=== PATIENT | female | born 1960 | race Hispanic/Latino ===

== ENCOUNTER 2017-03-11 18:51 | Emergency (ER) | payer BC ==
[~2017-03-11] VITALS: Ht 160 cm; Wt 81.7 kg
[~2017-03-11 18:51] MED LIST: ASPIRIN EC81 MG PO; FERROUS SULFAT325 MG PO; LEVOTHYROXINE100 MCG PO; MECLIZINE HCL25 MG PO
[2017-03-11] MEDS ORDERED: PROTONIX40 MG PO (20:41)
--- NOTE | 2017-03-14 17:04 | EKG ---
[facility] [place] [facility] [address] [facility] [place] [address] Signed Sinus rhythm with premature atrial complexes Nonspecific ST abnormality Abnormal ECG No previous ECGs available Confirmed by TIFFANY KAISER MD ([id number]) on 03/14/2017 5:04:23 PM Electronically Signed By: TIFFANY KAISER MD 03/14/17 1704 PATIENT NAME: ANURAG AVERY Electrocardiogram DATE OF : 56 PHYSICIAN: TIFFANY KAISER MD REPORT #: [id number] REPORT IS CONFIDENTIAL AND NOT TO BE RELEASED WITHOUT AUTHORIZATION
== END 2017-03-11 20:53 | disposition home or self-care (01) ==
LOC: ED 18:51
DX: R07.89 Other chest pain (principal); E03.9 Hypothyroidism, unspecified; Z79.899 Other long term (current) drug therapy; Z79.82 Long term (current) use of aspirin
CPT/HCPCS: 71046; 80053; 84484; 85025; 85379; 85610; 85730; 93005; 93010; 99284

== ENCOUNTER 2018-12-14 06:25 | Day surgery (SDC) | payer BC ==
[~2018-12-14] VITALS: Ht 160 cm; Wt 78.9 kg
[~2018-12-14 06:25] MED LIST changes: +LISINOPRIL-HCT1 EAC2 PO; +PROTONIX40 MG PO
--- NOTE | 2018-12-14 07:51 | NUR ---
0700-ICELANDIC INTERPRETOR WAS USED FOR TRANSLATION ON PHONE. SPEAKS SYRIAC AND PATIENT CAN UNDERSTAND SOME.
--- NOTE | 2018-12-14 08:03 | NUR ---
12/14/18 0803 Janette Ramires 0758-PATIENT ARRIVED TO PACU ON 3L NC PLACED ON 2L. PATIENT REACTIVE TO VOICE OPENS EYES. ABDOMEN SOFT.PATIENT UNDERSTANDS LITTLE ROMANIAN. PATIENT LAYING LEFT LATERAL.
--- NOTE | 2018-12-14 11:05 | OR ---
[facility] [address] [place], [place] [address] Signed DATE OF OPERATION: 12/14/2018 SURGEON: David Post MD PREOPERATIVE DIAGNOSES: 1. Hyperplastic polyps in 2008. 2. Iron-deficiency anemia. POSTOPERATIVE DIAGNOSIS: Moderate internal hemorrhoids. PROCEDURE: Colonoscopy without biopsy. ESTIMATED BLOOD LOSS: None. INDICATIONS: Anurag is a 58-year-old lady who came to us in 2008. She had a tiny hyperplastic polyp removed at 55 cm. She has no family history of colon cancer or polyps. She really has no lower GI complaints. She is on iron for iron deficiency anemia. She returns now for her 10-year followup. She always comes with her who helps interpret. She does understand [place] moderately well, but only speaks a small amount of [place]. In the office, I gave him pamphlets written in French. We went through them in detail. We also went through our written instructions, also written in French. They understand the nature of the test along with the risks including, but not limited to gas, bloating, crampy abdominal pain, bleeding, perforation requiring surgery, and missed diagnosis. They also understand the need for IV sedation. She understands her will have to take her home afterwards. After 24 hours, she can resume her activities. They expressed understanding and wished to proceed. PROCEDURE NOTE: Anurag was taken into our endoscopy suite and placed in the left lateral decubitus position. She was given 5 mg of Versed and 125 mcg of fentanyl to cover the case. A digital rectal exam was performed and this was unremarkable. The adult colonoscope was introduced and advanced around into the cecum under direct visualization of the camera. She required some extra sedation and we rotated her into the supine position with abdominal compression in order to advance the scope into the cecum itself. Overall, her prep was good. She had a couple of areas of liquid stool with seeds that I could not Electronically Signed By: DAVID POST MD 12/14/18 1105 PATIENT NAME: ANURAG AVERY OPERATIVE REPORT DATE OF : 56 REPORT #: [id number] PHYSICIAN: DAVID POST MD PCP: DEJA LUIS PA-C REPORT IS CONFIDENTIAL AND NOT TO BE RELEASED WITHOUT AUTHORIZATION [facility] [address] [place] [id number] Signed quite suction out completely. The scope was slowly withdrawn. We took pictures throughout for photodocumentation. We saw no pathology throughout the entire colon or rectum. Specifically, no polyps and no diverticulosis. Upon retroflexion of the scope, she does have moderate internal hemorrhoid columns with a couple of small internal anal skin tags. After this, the gas was suctioned out and the colonoscope removed. Anurag tolerated the procedure quite well. RECOMMENDATIONS: I will see Anurag back in my office in 10 years for repeat colonoscopy. MD SYLVESTER Culver/LEIDAL /[id number] cc: MD Deja Culver PA Copies: DAVID POST MD ~ Electronically Signed By: DAVID POST MD 12/14/18 1105 PATIENT NAME: ANURAG AVERY OPERATIVE REPORT DATE OF : 56 REPORT #: [id number] PHYSICIAN: DAVID POST MD PCP: DEJA LUIS PA-C REPORT IS CONFIDENTIAL AND NOT TO BE RELEASED WITHOUT AUTHORIZATION
== END 2018-12-14 08:43 | disposition home or self-care (01) ==
LOC: OPS 06:25 → DS 06:25 → OPS 06:45 → DS 06:45 → OPS 08:43
PROVIDERS: Colon & Rectal Surgery
PROC: 0DJD8ZZ Inspection of Lower Intestinal Tract, Via Natural or Artificial Opening Endoscopic (ICD-10-PCS; principal; 2018-12-14 06:45)
DX: Z12.11 Encounter for screening for malignant neoplasm of colon (principal); K64.8 Other hemorrhoids; K64.4 Residual hemorrhoidal skin tags; D50.9 Iron deficiency anemia, unspecified; I10 Essential (primary) hypertension; K21.9 Gastro-esophageal reflux disease without esophagitis; Z86.010 Personal history of colon polyps; Z98.890 Other specified postprocedural states; Z79.82 Long term (current) use of aspirin; Z79.899 Other long term (current) drug therapy
CPT/HCPCS: 99153; G0500; J2250; J3010; J7120